=== PATIENT | male | born 1970 | race Caucasian/White ===

== ENCOUNTER 2020-09-02 13:08 | Emergency (ER) | payer OTHER ==
[~2020-09-02] VITALS: Ht 193 cm; Wt 157.3 kg
[2020-09-02 13:35] VITALS: BP 136/84
--- NOTE | 2020-09-02 15:17 | NUR ---
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
[2020-09-02] MEDS ORDERED: DEXAMETHASONE 4 MG TABLET ONE (15:53)
--- NOTE | 2020-09-02 16:06 | NUR ---
PT AMBULATORY TO ROOM ONE Q/ C/O COUGH AND CONGESTION STARTED 3 DAYS AGO. PT STATES THIS HAPPENS TO HIM YEARLY. PT ALSO STATES HX BRONCHITIS. PT AOX4. SATING IN THE HIGH 90'S RA. SPEAKING IN FULL SENTENCES. NADN. MONITORS APPLIED. VSS.
[2020-09-02] MEDS ORDERED: DEXAMETHASONE 4 MG TABLET PO ONE (16:30)
== END 2020-09-02 16:15 | disposition home or self-care (01) ==
LOC: ED 16:07
DX: J06.9 Acute upper respiratory infection, unspecified (principal); J20.8 Acute bronchitis due to other specified organisms; B97.89 Other viral agents as the cause of diseases classified elsewhere; R05 Cough; R09.81 Nasal congestion; R07.9 Chest pain, unspecified; I10 Essential (primary) hypertension
CPT/HCPCS: 71045; 99283